=== PATIENT | male | born 1975 | race Caucasian/White ===

== ENCOUNTER 2019-04-25 19:47 | Emergency (ER) | payer BC ==
[~2019-04-25] VITALS: Ht 170.2 cm; Wt 101.6 kg
[2019-04-25] MEDS ORDERED: FLAGYL500 MG PO (22:07)
[2019-04-25] MEDS ORDERED: ZOFRAN4 MG PO (22:07)
[2019-04-25] MEDS ORDERED: NORCO 5-325 TA1 EACH PO (22:07)
[2019-04-25] MEDS ORDERED: CIPRO500 MG PO (22:07)
== END 2019-04-25 22:35 | disposition home or self-care (01) ==
LOC: ED 19:47
DX: K57.92 Diverticulitis of intestine, part unspecified, without perforation or abscess without bleeding (principal); I10 Essential (primary) hypertension
CPT/HCPCS: 74177; 80053; 81001; 83690; 85025; 99284-25; J2405; J7030

== ENCOUNTER 2020-12-16 14:25 | Emergency (ER) | payer MEDICARE ==
[~2020-12-16] VITALS: Ht 170.2 cm; Wt 104.3 kg
[~2020-12-16 14:25] MED LIST: CIPRO500 MG PO; FLAGYL500 MG PO; NORCO 5-325 TA1 EACH PO; ZOFRAN4 MG PO
[2020-12-16] MEDS ORDERED: ONDANSETRON ODT8 MG PO (18:40)
== END 2020-12-16 19:24 | disposition home or self-care (01) ==
LOC: ED 14:25
DX: A08.4 Viral intestinal infection, unspecified (principal); E83.42 Hypomagnesemia; E87.6 Hypokalemia; Z20.822 Contact with and (suspected) exposure to COVID-19; I10 Essential (primary) hypertension
CPT/HCPCS: 71045; 76705; 80053; 81001; 83605; 83690; 83735; 84484; 85025; 87502; 96365; 96375; 99285-25; C9803; J2405; J3475; J3480; J7030; J7060; U0003

== ENCOUNTER 2020-12-17 16:42 | Inpatient (IN) | payer OTHER ==
[~2020-12-17] VITALS: Ht 170.2 cm; Wt 102.5 kg
[~2020-12-17 16:42] MED LIST changes: +ONDANSETRON ODT8 MG PO
--- OUTSIDE RECORDS SUMMARY | 2020-12-17 16:44 | XMS ---
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 Doris has no Care Guidelines for this patient. [facility] VISIT COUNT (12 MO.) [facility] T[facility] NOTE: Visits indicate total known visits. ED/C VISIT TRACKING (12 MO.) 12/17/2020 16:[address] [facility] [place] TYPE: Emergency COMPLAINT: - MULTIPLE COMPLAINTS 12/16/2020 14:26 [facility] [place] TYPE: Emergency COMPLAINT: - FEVER, VOMITING INPATIENT VISIT TRACKING (12 MO.) No inpatient visits to display in this time frame [email or web address]
--- NOTE | 2020-12-17 20:19 | NUR ---
PT ADMITTED TO ROOM 123 FROM ED, ACCOMPANIED BY HIS . SELF TRANSFER TO BATHROOM FROM STRETCHER, BACK TO BED.
--- NOTE | 2020-12-17 21:06 | NUR ---
PT ASSESSMENT COMPLETE. VARNISHING UNIT TOOL SETTER AT BEDSIDE COMPLETING ADMISSION PROCESS WITH PT AND HIS . PT REPORTS PAIN 6/10 TO ABD AND HEADACHE, SCHEDULED TORADOL ADMINISTERED. PT DENIES SOB OR NAUSEA AT THIS TIME. PT REPORTS FEELING URINARY URGENCY AND FREQUENCY BUT ONLY BEING ABLE TO VOID SMALL AMOUNTS WHEN HE VOIDS. PT REPORTS THIS IS OF NEW ONSET WITH THIS ILLNESS. BT'S HYPOACTIVE. PT REPORTS ABD TENDERNESS TO LOWER ABDOMEN TO ROOM AND UNIT, POC FOR THIS SHIFT. PT AND HIS DENIES QUESTIONS, CONCERNS, OR NEEDS AT THIS TIEM. WHITEBOARD UPDATED. CALL LIGHT IN REACH.
--- NOTE | 2020-12-17 22:31 | NUR ---
PT UTILIZES CALL LIGHT, REQUESTS TO USE THE BATHROOM. PT TO BATHROOM AND BACK TO BED WITH SBA. TOLERATED WELL. STATES THAT TORADOL HAS HELPED HIS HEADACHE. STATES PAIN IS TOLERABLE. PT DENIES FURTHER NEEDS AT THIS TIME. CALL LIGHT IN REACH.
--- NOTE | 2020-12-18 01:15 | NUR ---
PT RESTING IN BED ON L SIDE. RESPIRATIONS EVEN AND UNLABORED. PT APPEARS TO BE SLEEPING. CALL LIGHT IN REACH.
--- NOTE | 2020-12-18 02:14 | NUR ---
PT ASSESSMENT COMPLETE. PT UP TO BATHROOM AND BACK TO BED WITH SBA. TOLERATED WELL. PT REPORTS THAT HEADACHE PAIN IS STARTING TO RETURN. STATES THAT ABD PAIN REMAINS WELL CONTROLLED AFTER TORADOL ADMINISTRATION. BT'S HYPOACTIVE. PT DENIES ABD TENDERNESS TO PALPATION. PRN TYLENOL ADMINISTERED, SEE EMAR. ICE PACK PROVIDED FOR PT'S HEAD. PT DENIES FURTHER NEEDS AT THIS TIME. CALL LIGHT IN REACH.
--- NOTE | 2020-12-18 04:22 | NUR ---
POOL TABLE OPERATOR TO ROOM FOR IV PUMP ALARMING. PT RESTING IN BED WITH EYES CLOSED ON HIS R SIDE. APPEARS TO BE SLEEPING. DOES NOT WAKE WHILE POOL TABLE OPERATOR AT BEDSIDE. CALL LIGHT IN REACH.
--- NOTE | 2020-12-18 05:48 | NUR ---
PT UTILIZES CALL LIGHT, REQUESTS TO USE THE BATHROOM. PT UP TO BATHROOM WITH SBA. WILL PULL THE BATHROOM LIGHT WHEN READY, WOULD LIKE TO ATTEMPT BM. DENIES FURTHER NEEDS.
--- NOTE | 2020-12-18 07:00 | NUR ---
REPORT RECIEVED. PT IN BED AWAKE. LR AT 125ML/HR INFUSING. CALL LIGHT IN REACH. DENEIS NEEDS.
--- NOTE | 2020-12-18 09:27 | NUR ---
PATIENT IN BED WATCHING TV. VITALS AND I&O'S CHARTED. FRESH WATER IN BED. CALL LIGHT IN REACH. NO FURTHER NEEDS AT THIS TIME. SHOWER MAYBE LATER.
--- NOTE | 2020-12-18 10:00 | NUR ---
ASSESSMENT COMPLETED. PT C/O 03/17 HEADACHE. TYLENOL GIVEN. LUNGS CLEAR. PT REPORTS ABDOMEN IS SLIGHTLY TENDER. ATE 100% OF BREAKFAST. DENEIS NAUSEA. HEART SOUNDS REGULAR. CALL LIGHT IN REACH.
--- NOTE | 2020-12-18 11:36 | NUR ---
Patient is awake, alert, and oriented. His is in the room during this visit. Patient feels happy with his care. States some nausea today but did not report to RN. I will make this report to his nurse. I did encourage patient to use his call light when he had needs or concerns. We discussed options for a successful discharge, and discussed posssibility of outpatient treatment for IV antibiotics which will be desided by the doctor. Patient does plan to discharge home, he does state that he is happy with his care, here on the medical floor and the care he received int he ED.
--- NOTE | 2020-12-18 12:55 | NUR ---
PT DRANK BROTH FOR LUNCH. REPORTS NAUSEA IS GONE. HEADACHE RATED AT 4/10 TOLERABLE. PT WANTS TO WAIT TO WAKE UP MORE BEFORE REQUESTING MORE MEDICATION.
--- NOTE | 2020-12-18 14:13 | NUR ---
report received and care of this pt assumed. tordol given per request for a headache. is present in the room. dr gan in to see pt and discuss plans going forward.
--- NOTE | 2020-12-18 14:23 | NUR ---
PT IS ALERT, ORIENTED AND C/O BAD HEADACHE. PT MENTIONED HE HAS HAD IT ALL WEEKEND. PT SEEMS PLEASED WITH HIS CARE, DOES NOT FEEL A NEED TO DC TODAY. HAD PRAYER WITH PT, HIS ROBIN IS IN WITH HIM. LEFT G.POST, WILL FOLLOW NEEDED
--- NOTE | 2020-12-18 14:48 | NUR ---
TOOK PATIENTS VITALS. OFFERED SHOWER PATIENT WILL LET THIS BAG MACHINE HELPER KNOW WHEN READY. PATIENT NEEDS NOTHING FURTHER FOR NOW
--- NOTE | 2020-12-18 15:02 | NUR ---
MED REC COMPLETE
--- NOTE | 2020-12-18 17:28 | NUR ---
PT AGREES HIS HEADACHE IS MUCH IMPROVED. RATES PAIN 2/10 FROM 8/10. EVENING MEAL ORDERED, REMAINS IN THE ROOM.
--- NOTE | 2020-12-18 18:26 | NUR ---
PATIENTS VITALS WERE TAKEN AND DOCUMENTED. PATIENTS STATES HE IS NOT IN PAIN AND WAS ABLE TO EAT DINNER. NOTGHING ELSE NEEDED AT THIS TIME. PATIENT NEVER WANTED HIS SHOWER TODAY. STATED HE DIDNT FEEL UP TO IT.
--- NOTE | 2020-12-18 18:28 | NUR ---
PT RESTING EYES CLOSED, IS IN THE ROOM. PT LEFT UNDISTURBED.
--- NOTE | 2020-12-18 19:00 | NUR ---
BEDSIDE REPORT RECEIVED FROM ROBIN SCHMIDT. PT RESTING IN BED, DOES NOT WAKE WHILE REPORT AT DOORWAY. CALL LIGHT IN REACH.
--- NOTE | 2020-12-18 21:15 | NUR ---
PT ASSESSMENT COMPLETE. PT RESTING IN BED WITH EYES CLOSED. WAKES EASILY TO VOICE AND TOUCH. PT STATES THAT PAIN IS WELL CONTROLLED AT THIS TIME. HEADACHE REMAINS 2/10 WHICH IS TOLERABLE. DENIES SOB OR NAUSEA. BT'S ACTIVE. ABD REMAINS TENDER TO TOUCH. UNCHANGED THROUGHOUT DAY PER PT. IV FLUSHED, WNL. PT UP TO USE BATHROOM INDEPENDENTLY, TOLERATED WELL. WHITE BOARD UPDATED. PT DENIES FURTHER NEEDS. CALL LIGHT IN REACH.
--- NOTE | 2020-12-18 23:47 | NUR ---
FOREIGN EXCHANGE CLERK TO ROOM TO ROUND ON PT. PT REPORTS HEADACHE RETURNING, RATES 5-10, REQUESTS PRN, ADMINISTERED. PT UP TO USE THE BATHROOM AND BACK TO BED INDEPENDENTLY, TOLERATED WELL. PT DENIES FURTHER NEEDS. CALL LIGHT IN REACH.
--- NOTE | 2020-12-19 01:48 | NUR ---
PT RESTING IN BED WITH EYES CLOSED, LYING ON R SIDE. RESPIRATIONS EVEN AND UNLABORED. PT APPEARS TO BE SLEEPING. CALL LIGHT IN REACH.
--- NOTE | 2020-12-19 04:40 | NUR ---
PT RESTING IN BED WATCHING TV. URINAL EMPTIED. PT STATES THAT HEADACHE IS WELL CONTROLLED. PT STATES HE IS HEADED TO THE BATHROOM AND WILL CALL WHEN HE IS FINISHED FOR ASSESSMENT. PT DENIES FURTHER NEEDS AT THIS TIME. CALL LIGHT IN REACH.
--- NOTE | 2020-12-19 05:28 | NUR ---
PT ASSESSMENT COMPLETE. PT STATES THAT PAIN IS WELL CONTROLLED AT THIS TIME. DENIES HEADACHE AND ABD PAIN. DENIES SOB OR NAUSEA. BT'S ACTIVE. PT DENIES TENDERNESS TO ABD PALPATION. IV FLUSHED PRIOR TO SCHEDULED MEDICCATION ADMIN, WNL. VS OBTAINED, WNL. PT DENIES NEEDS AT THIS TIME. LAB AT BEDSIDE TO OBTAIN BLOOD SAMPLE. CALL LIGHT IN PT REACH.
--- NOTE | 2020-12-19 07:49 | NUR ---
Patient resting in bed, eyes closed, respirations even and non labored. Patient has no distress noted. Personal supplies and call light within reach.
--- NOTE | 2020-12-19 08:29 | NUR ---
Patient reports minimal abdominal pain with no nausea at this time. Breakfast ordered. Patient has no needs at this time. Call light within reach.
--- NOTE | 2020-12-19 09:36 | NUR ---
PATIENT UP IN CHAIR FOR MEAL. VITALS DONE AND CHARTED. EMPTIED URINAL OFFERED SHOWER. PATIENT STATED HE WILL TAKE ONE LATER TODAY.
[2020-12-19] MEDS ORDERED: CEPHALEXIN500 M1 PO (11:59)
[2020-12-19] MEDS ORDERED: FLAGYL500 MG PO (12:00)
[2020-12-19] MEDS ORDERED: CULTURELLE1 EAC1 PO (12:02)
--- NOTE | 2020-12-19 12:34 | NUR ---
VERBAL ORDER FROM DR. GARRETT TO LEAVE IV SITE IN WHEN PT DISCHARGES HOME. PT TO HAVE OUTPT ABX'S.
--- NOTE | 2020-12-19 13:05 | NUR ---
PATIENT READY FOR DISCHARGE. VITALS DONE AND CHARTED. B/P HIGH RN NOTIFIED. NOTHING ELSE NEEDED AT TIS TIME.
--- NOTE | 2020-12-19 13:45 | NUR ---
Spoke with Jason and his Neyda. Pt plans on dc today and will return to OP tomorrow for IV therapy x 2 days. Orders were completed and faxed per Ann PEARCE. Pt and deny further needs.
--- NOTE | 2020-12-19 14:52 | NUR ---
PT ALERT, ORIENTED AND LAYING IN BED. PT IS FEELING MUCH BETTER, HEADACHE IS ALMOST GONE. HOPES TO DC TODAY, WILL BE WILLING TO TO DO OP IV THERAPY. FEELS GOOD ABOUT CARE HE HAS RECEIVED. REQUESTED PRAYER, WILL FOLLOW
== END 2020-12-19 13:17 | disposition home or self-care (01) | DRG 392 ==
LOC: ED 16:42 → MS 16:43
PROVIDERS: ADMIT Student in an Organized Health Care Education/Training Program; ATTEND Student in an Organized Health Care Education/Training Program
DX: K57.92 Diverticulitis of intestine, part unspecified, without perforation or abscess without bleeding (principal); R78.81 Bacteremia; B96.20 Unspecified Escherichia coli [E. coli] as the cause of diseases classified elsewhere; I10 Essential (primary) hypertension; E86.0 Dehydration; K76.0 Fatty (change of) liver, not elsewhere classified; R51.9 Headache, unspecified
CPT/HCPCS: 36415; 74177; 80048; 80053; 81001; 83036; 83605; 83690; 83735; 85025; 85651; J0696; J0780; J1650; J1885; J2405; J7121; Q9967